=== PATIENT | female | born 1965 | race Caucasian/White ===

== ENCOUNTER 2016-12-08 09:17 | Day surgery (SDC) | payer OTHER ==
[2016-12-04 13:03] LABS: BASOPHILS 1.1 %; BASOPHILS ABSOLUTE 0.06 10/3/uL (0.0-0.16); EOSINOPHILS 4.5 %; EOSINOPHILS ABSOLUTE 0.25 10/3/uL (0.0-0.53); HEMATOCRIT 40.5 % (36.0-48.0); HEMOGLOBIN 13.5 g/dL (12.0-16.0); IMMATURE GRANULOCYTES 0.2 %; IMMATURE GRANULOCYTES ABSOLUTE 0.01 10/3/uL (0.0-0.11); LYMPHOCYTES 33.3 %; LYMPHOCYTES ABSOLUTE 1.86 10/3/uL (0.67-4.30); MEAN CORPUS HGB CONC 33.3 g/dL (32.0-36.0); MEAN CORPUSCULAR HEMOGLOB 33.8 pg (26.0-34.0); MEAN CORPUSCULAR VOLUME 101.3 fL (80-100); MEAN PLATELET VOLUME 10.1 fL (9.2-13.0); MONOCYTES ABSOLUTE 0.39 10/3/uL (0.21-1.20); NEUTROPHILS 53.9 %; NEUTROPHILS ABSOLUTE 3.02 10/3/uL (2.02-8.40); PLATELET COUNT 118 10/3/uL (150-400); RBC DISTRIBUTION WIDTH 12.8 % (12.0-16.0); WHITE BLOOD CELLS 5.6 10/3/uL (4.5-10.5)
[2016-12-04 13:06] LABS: MANUAL DIFF NO %
[2016-12-04 13:11] LABS: PARTIAL THROMBO TIME 28.2 SEC (22.5-37.2); PROTIME (NOT ORD) 13.1 SEC (12.0-14.5)
[2016-12-04 13:27] LABS: A/G RATIO 1.3 (0.7-1.9); ALBUMIN 4.1 G/DL (3.5-5.0); ALKALINE PHOSPHATASE 209 U/L (45-117); BUN (BLOOD UREA NITROGEN) 15 MG/DL (6-23); CALCIUM, SERUM 9.3 MG/DL (8.5-10.4); CHLORIDE, SERUM 104 MMOL/L (96-112); CO2 (CARBON DIOXIDE) 33 MMOL/L (24-34); CREATININE 1.05 MG/DL (0.55-1.02); GFR AFRICAN AMERICAN 71 ML/MIN (>=60); GFR NON AFRICAN AMERICAN 61 ML/MIN (>=60); GLOBULIN 3.2 G/DL (2.5-4.1); GLUCOSE, SERUM 87 MG/DL (60-99); POTASSIUM, SERUM 4.4 MMOL/L (3.5-5.3); SGOT(AST) 19 U/L (5-40); SGPT(ALT) 29 U/L (5-65); SODIUM, SERUM 143 MMOL/L (135-148); TOTAL BILIRUBIN 0.6 MG/DL (0-1.2); TOTAL PROTEIN 7.3 G/DL (6.0-8.5)
[~2016-12-08] VITALS: Ht 170.2 cm; Wt 73.9 kg
--- NOTE | ~2016-12-08 | OP ---
Record Of Operation [facility] [address] [place]. [address] NAME: SATYA DOUGLASS : 63 STATUS : [facility]#: [id number] AGE: 51 ADM/REG DATE : 12/08/16 MR#: [id number] REPORT SERV DATE: 12/09/16 DICTATED BY: VIVIEN ARMENDARIZ JR. DATE: 12/08/16 REPORT STATUS : Draft TRANSCRIBED BY: PRASANTH DATE: 12/08/16 DATE OF PROCEDURE: 12/08/2016 PHARMACY TECHNICIAN: Kristen Martinez. PROCEDURE: Laparoscopic cholecystectomy with intraoperative cholangiography. PREOPERATIVE DIAGNOSIS: Cholelithiasis. POSTOPERATIVE DIAGNOSIS: Cholelithiasis. ANESTHESIA: General. INDICATIONS: The patient has presented with abdominal right upper quadrant pain. Imaging shows cholelithiasis. It also shows slightly dilated bile duct and cholecystectomy along with intraoperative cholangiography is indicated. FINDINGS: On the laparoscopic examination of abdomen, there was evidence of acute inflammation of the gallbladder with edema and adhesions and obvious stones that were present. An intraoperative cholangiography was performed with C-arm fluoroscopy which shows flow into the duodenum and no evident filling defects within the bile duct and also filling of the proximal hepatic ducts. No other significant findings were encountered. DESCRIPTION OF PROCEDURE: With adequate general anesthesia, the patient was placed in supine position. The abdomen was prepped and draped sterilely. Marcaine 0.5% was used for local infiltration of all trocar sites. An umbilical incision was made. The dissection was carried down sharply through the subcutaneous tissues. The fascia and peritoneum were opened. The peritoneal cavity was entered. A balloon-tipped trocar was introduced and the abdomen was insufflated with CO2. The laparoscope was introduced with the above-noted findings. Under direct vision, a 10/11 trocar was placed in the epigastric region and then two 5-mm trocars in the subcostal region. The gallbladder was identified, grasped, and retracted. Adhesions taken off the gallbladder with blunt dissection. Then the cystic duct was identified, clipped, and partially opened. An Arrow cholangiogram catheter was introduced and 50% Hypaque was injected as noted above. Then the catheter was removed. The duct was doubly clipped and divided. Some of the cystic artery was doubly clipped and divided. The gallbladder was removed from its bed with electrocautery. It was extracted through the umbilical site and submitted to Pathology. Bleeding within the bed was controlled with electrocautery. It was irrigated thoroughly with saline. Hemostasis was assured. Then, all trocars were removed under direct vision. The umbilical site was closed at the fascial layer with [id number] PDS. All wounds were then closed with dermal Monocryl. Sterile dressings were applied. The patient left the operating room in satisfactory condition. ESTIMATED BLOOD LOSS: 30 mL. Record Of Operation [address] [address] NAME: SATYA DOUGLASS : 63 STATUS : [facility] PAT#: [id number] AGE: 51 ADM/REG DATE : 12/08/16 MR#: [id number] REPORT SERV DATE: 12/09/16 DICTATED BY: VIVIEN ARMENDARIZ JR. DATE: 12/08/16 REPORT STATUS : Draft TRANSCRIBED BY: PRASANTH DATE: 12/08/16 LEYLA/PRASANTH Vivien Armendariz Jr., M.D. / [id number] CC: Deanne Fontenot Jr., M.D.
[~2016-12-08 09:17] MED LIST: ASAB PO; EFFEXOR XR150 MG PO; IBU800 PO; KLONO5 PO; LIPITOR20 PO; NEUR400 PO; PCET PO; PEP20 PO; PRINZIDE1 TA1 PO; PROVHFA INH; ZANAFLEX 4 MG TA4 MG PO
== END 2016-12-08 20:10 | disposition home or self-care (01) ==
LOC: SDC 09:17
PROVIDERS: Specialist
PROC: BF12YZZ Fluoroscopy of Gallbladder using Other Contrast (ICD-10-PCS; 2016-12-08)
PROC: 0FT44ZZ Resection of Gallbladder, Percutaneous Endoscopic Approach (ICD-10-PCS; principal; 2016-12-08 11:15)
DX: K80.10 Calculus of gallbladder with chronic cholecystitis without obstruction (principal); I10 Essential (primary) hypertension; E78.00 Pure hypercholesterolemia, unspecified; F41.9 Anxiety disorder, unspecified; F17.210 Nicotine dependence, cigarettes, uncomplicated; F32.9 Major depressive disorder, single episode, unspecified; M81.0 Age-related osteoporosis without current pathological fracture; Z88.0 Allergy status to penicillin; Z98.51 Tubal ligation status; Z99.89 Dependence on other enabling machines and devices; Z79.82 Long term (current) use of aspirin; Z79.899 Other long term (current) drug therapy
CPT/HCPCS: 71020; 74300; 80053; 82150; 83690; 85025; 85610; 85730; 88304; 93005; A9270-GY; J0690; J1170; J2250; J2370; J2405; J2710; J3010; Q9967